=== PATIENT | male | born 1970 | race Caucasian/White ===

== ENCOUNTER 2025-02-11 11:43 | Emergency (ER) | payer OTHER ==
[~2025-02-11] VITALS: Ht 195.6 cm; Wt 88.0 kg
[2025-02-11 11:56] VITALS: PULSE 87; RESP 20; TEMP 98.1
[2025-02-11] MEDS ORDERED: SALONPAS1 EACH TP (14:24)
[2025-02-11] MEDS ORDERED: VENTOLIN HFA18 GM INH (16:00)
[2025-02-11] MEDS ORDERED: IBUPROFEN600 MG PO (16:00)
[2025-02-11 16:10] VITALS: BP 125/76; PULSE 70; RESP 16; TEMP 97.4; O2SAT 97
== END 2025-02-11 16:07 | disposition home or self-care (01) ==
LOC: FSED 11:51
DX: S20.211A Contusion of right front wall of thorax, initial encounter (principal); J98.11 Atelectasis; W01.0XXA Fall on same level from slipping, tripping and stumbling without subsequent striking against object, initial encounter; Y92.89 Other specified places as the place of occurrence of the external cause; I10 Essential (primary) hypertension; E03.9 Hypothyroidism, unspecified; F32.A Depression, unspecified
CPT/HCPCS: 71045; 71101; 99284